=== PATIENT | male | born 1985 | race Caucasian/White ===

== ENCOUNTER 2025-05-22 16:56 | Outpatient (REF) | payer BC, SELFPAY ==
[2025-05-22 19:46] LABS: Anion Gap 9.3 mmol/L (3-11); BUN 27 mg/dL (7-18); CO2 27.7 mmol/L (21.0-32.0); Calcium 9.3 mg/dL (8.5-10.1); Chloride 104 mmol/L (98-107); Estimated GFR 98.80 (mL/min/1.73m2); Glucose 86 mg/dL (74-106); Potassium 4.1 mmol/L (3.5-5.1); Sodium 141 mmol/L (136-145); TSH 7.90 uIU/mL (0.36-3.74)
[2025-05-22 19:58] LABS: Hemoglobin A1C 5.0 % (<5.7)
== END 2025-05-22 16:57 | disposition home or self-care (01) ==
LOC: NCHCN 16:56
PROVIDERS: PCP Physician Assistant; Visit Provider Physician Assistant
DX: E66.813 Obesity, class 3 (principal); Z68.41 Body mass index [BMI] 40.0-44.9, adult; Z13.1 Encounter for screening for diabetes mellitus
CPT/HCPCS: 80048; 83036; 84439; 84443